=== PATIENT | male | born 1995 | race Caucasian/White ===

== ENCOUNTER 2017-10-15 19:36 | Inpatient (IN) | payer BC, OTHER ==
[~2017-10-15] VITALS: Ht 180.3 cm; Wt 61.2 kg
[2017-10-16] MEDS ORDERED: BUPRENORPHINE HCL 2 MG TAB.SUBL SL PRN (00:30)
[2017-10-16] MEDS ORDERED: HYDROXYZINE PAMOATE 25 MG CAPSULE PO PRN (00:30)
[2017-10-16] MEDS ORDERED: IBUPROFEN 400 MG TABLET PO PRN (00:30)
[2017-10-16] MEDS ORDERED: MAGNESIUM HYDROXIDE 30 ML LIQUID UDC PO PRN (00:30)
[2017-10-16] MEDS ORDERED: ONDANSETRON ODT 4 MG TAB.RAPDIS SL PRN (00:30)
[2017-10-16] MEDS ORDERED: MAG HYDROX/AL HYDROX/SIMETH 30 ML LIQUID UDC PO PRN (00:30)
[2017-10-16] MEDS ORDERED: MIRALAX 17 GM POWD.PACK PO PRN (00:30)
[2017-10-16] MEDS ORDERED: METHOCARBAMOL 750 MG TABLET PO PRN (00:30)
[2017-10-16] MEDS ORDERED: LOPERAMIDE HCL 2 MG CAPSULE PO PRN ×2 (00:30)
[2017-10-16] MEDS ORDERED: ONDANSETRON 4 MG/2 ML VIAL IM PRN (00:30)
[2017-10-16] MEDS ORDERED: DICYCLOMINE HCL 20 MG TABLET PO PRN (00:30)
[2017-10-16] MEDS ORDERED: CLONIDINE HCL 0.1 MG TABLET PO PRN (00:30)
[2017-10-16 03:53] LABS: *AMPHETAMINE, URINE POSITIVE (NEGATIVE); *BARBITURATE, URINE NEGATIVE (NEGATIVE); *CANNABINOID, URINE NEGATIVE (NEGATIVE); *COCCAINE, URINE NEGATIVE (NEGATIVE); *OPIATE, URINE POSITIVE (NEGATIVE); *PHENCYCLIDINE SCREEN,URINE NEGATIVE (NEGATIVE)
[2017-10-16 04:00] VITALS: BP 94/52
[2017-10-16 07:50] LABS: BASOPHILS % (AUTO) 0.3 % (0.0-2.0); EOSINOPHILS # (AUTO) 0.1 K/uL (0.0-0.7); EOSINOPHILS % (AUTO) 1.8 % (0.0-7.0); HEMATOCRIT 38.2 % (36.7-47.1); HEMOGLOBIN 13.1 g/dL (12.5-16.3); LYMPHOCYTES # (AUTO) 2.3 K/uL (20.0-40.0); LYMPHOCYTES % (AUTO) 48.2 % (20.5-51.5); MEAN CORPUSCULAR HGB CONC 34 g/dL (32.5-36.3); MEAN CORPUSCULAR VOLUME 87.6 fL (73.0-96.2); MONOCYTES # (AUTO) 0.4 K/uL (2.0-10.0); MONOCYTES % (AUTO) 9.4 % (0.0-11.0); NEUTROPHILS # (AUTO) 1.9 K/uL (1.8-8.9); NEUTROPHILS % (AUTO) 40.3 % (38.5-71.5); PLATELET COUNT (AUTO) 83 K/uL (152-348); RED BLOOD CELL COUNT(AUTO) 4.36 MIL/uL (4.06-5.63); WHITE BLOOD COUNT (AUTO) 4.7 K/uL (3.6-10.2)
[2017-10-16 08:00] VITALS: BP 104/58
[2017-10-16 08:05] LABS: ALANINE AMINOTRANSFERASE 176 U/L (16-63); ALKALINE PHOSPHATASE 79 U/L (50-136); AMYLASE 30 U/L (25-115); ASPARTATE AMINOTRANSFERASE 56 U/L (15-37); BILIRUBIN,TOTAL 0.4 mg/dL (0.2-1.0); CARBON DIOXIDE 26 mmol/L (21-32); CHLORIDE 105 mmol/L (98-107); CREATININE 0.7 mg/dL (0.6-1.3); GLUCOSE 97 mg/dL (74-106); LIPASE 77 U/L (73-393); POTASSIUM 3.6 mmol/L (3.5-5.1); TOTAL PROTEIN, SERUM 6.7 g/dL (6.4-8.2); UREA NITROGEN, BLOOD 10 mg/dL (7-18)
[2017-10-16 08:07] LABS: ETHANOL < 3 MG/DL (0-0)
[2017-10-16 08:17] LABS: THYROID STIMULATING HORMONE 1.479 mIU/mL (0.358-3.740)
[2017-10-16] MEDS ORDERED: IBUPROFEN 600 MG TABLET PO PRN (09:15)
[2017-10-16] MEDS: MULTIVITAMINS,THERAPEUTIC TABLET PO SCH (09:52)
[2017-10-16 10:36] LABS: LYMPHOCYTES % (MANUAL) 46 % (20-40); NEUTROPHILS % (MANUAL) 45 % (42-75)
[2017-10-16 10:37] LABS: BASOPHILS % (MANUAL) 1 % (0-2); EOSINOPHILS % (MANUAL) 1 % (0-8); MONOCYTES % (MANUAL) 7 % (2-10)
[2017-10-16] MEDS ORDERED: LORAZEPAM 1 MG TABLET PO PRN (11:30)
[2017-10-16 12:00] VITALS: BP 135/79
[2017-10-16] MEDS: BUPRENORPHINE HCL 2 MG TAB.SUBL SL SCH ×3 (12:53→21:56)
[2017-10-16 16:00] VITALS: BP 128/82
[2017-10-16 20:00] VITALS: BP 131/71
[2017-10-16] MEDS: GABAPENTIN 300 MG CAPSULE PO SCH (21:56)
[2017-10-17] VITALS: BP 140/73
[2017-10-17] MEDS: diphenhydrAMINE 50 MG CAPSULE PO PRN (00:25)
[2017-10-17 04:00] VITALS: BP 133/74
[2017-10-17 08:00] VITALS: BP 90/56
[2017-10-17 08:06] LABS: HEPATITIS B SURFACE AG Negative (Negative)
[2017-10-17] MEDS ORDERED: TUBERCULIN,PURIF.PROT.DERIV. 5 TU/0.1 ML TEST ID ONE (09:00)
[2017-10-17] MEDS ORDERED: BUPRENORPHINE HCL 2 MG TAB.SUBL SL SCH (09:00)
[2017-10-17] MEDS: MULTIVITAMINS,THERAPEUTIC TABLET PO SCH (09:53)
[2017-10-17] MEDS: GABAPENTIN 300 MG CAPSULE PO SCH ×3 (09:54→22:11)
[2017-10-17] MEDS: HYDROXYZINE PAMOATE 25 MG CAPSULE PO PRN (11:24)
[2017-10-17 12:13] VITALS: BP 140/74
[2017-10-17] MEDS: BUPRENORPHINE HCL 2 MG TAB.SUBL SL SCH ×2 (14:39→22:11)
[2017-10-17 16:00] VITALS: BP 92/56
[2017-10-17 20:02] VITALS: BP 124/74
[2017-10-17] MEDS: CLONIDINE HCL 0.1 MG TABLET PO SCH (22:11)
[2017-10-17] MEDS: ACETAMINOPHEN 325 MG TABLET PO PRN (23:18)
[2017-10-18 00:12] VITALS: BP 133/74
[2017-10-18 04:24] VITALS: BP 128/79
[2017-10-18 09:00] VITALS: BP 107/60
[2017-10-18] MEDS: BUPRENORPHINE HCL 2 MG TAB.SUBL SL SCH ×3 (09:47→22:20)
[2017-10-18] MEDS: ACETAMINOPHEN 325 MG TABLET PO PRN ×2 (09:48→18:32)
[2017-10-18] MEDS: CLONIDINE HCL 0.1 MG TABLET PO SCH ×2 (09:48→22:21)
[2017-10-18] MEDS: MULTIVITAMINS,THERAPEUTIC TABLET PO SCH (09:48)
[2017-10-18] MEDS: GABAPENTIN 300 MG CAPSULE PO SCH ×3 (09:48→22:20)
[2017-10-18] MEDS ORDERED: KETOROLAC TROMETHAMINE 30 MG INJ IM PRN (10:45)
[2017-10-18] MEDS ORDERED: BENZOCAINE ORAL CARE 12 ML BOTTLE MM PRN (10:45)
[2017-10-18] MEDS ORDERED: HYDR-3895 PO (12:35)
[2017-10-18] MEDS ORDERED: METH-406 PO (12:35)
[2017-10-18] MEDS ORDERED: DICY20TA28 PO (12:35)
[2017-10-18] MEDS ORDERED: DIPH50CA37 PO (12:35)
[2017-10-18] MEDS ORDERED: GABA-534 PO (12:35)
[2017-10-18] MEDS ORDERED: CLON0.1T14 PO (12:35)
[2017-10-18] MEDS ORDERED: IBUP-1955 PO (12:35)
[2017-10-18 12:42] VITALS: BP 129/68
[2017-10-18 16:41] VITALS: BP 123/76
[2017-10-18 20:00] VITALS: BP 125/73
[2017-10-18] MEDS: LACTOBACILLUS RHAMNOSUS GG 1 EACH CAPSULE PO SCH (22:20)
[2017-10-18] MEDS: diphenhydrAMINE 50 MG CAPSULE PO PRN (22:20)
[2017-10-18] MEDS: AMOXICILLIN-CLAVUL 875-125MG TABLET PO SCH (22:22)
[2017-10-19 08:00] VITALS: BP 119/72
[2017-10-19] MEDS ORDERED: BUPRENORPHINE HCL 2 MG TAB.SUBL SL SCH (09:00)
[2017-10-19] MEDS: MULTIVITAMINS,THERAPEUTIC TABLET PO SCH (09:19)
[2017-10-19] MEDS: GABAPENTIN 300 MG CAPSULE PO SCH ×3 (09:19→21:45)
[2017-10-19] MEDS: AMOXICILLIN-CLAVUL 875-125MG TABLET PO SCH ×2 (09:20→21:44)
[2017-10-19] MEDS: LACTOBACILLUS RHAMNOSUS GG 1 EACH CAPSULE PO SCH ×2 (09:20→21:44)
[2017-10-19] MEDS: CLONIDINE HCL 0.1 MG TABLET PO SCH ×2 (09:20→21:45)
[2017-10-19 12:00] VITALS: BP 102/60
[2017-10-19 16:00] VITALS: BP 128/66
[2017-10-19 20:00] VITALS: BP 125/70
[2017-10-19] MEDS: diphenhydrAMINE 50 MG CAPSULE PO PRN (21:44)
[2017-10-19] MEDS: HYDROXYZINE PAMOATE 25 MG CAPSULE PO PRN (21:44)
[2017-10-20 08:00] VITALS: BP 127/76
[2017-10-20] MEDS: AMOXICILLIN-CLAVUL 875-125MG TABLET PO SCH (08:01)
[2017-10-20] MEDS: GABAPENTIN 300 MG CAPSULE PO SCH (08:01)
[2017-10-20] MEDS: LACTOBACILLUS RHAMNOSUS GG 1 EACH CAPSULE PO SCH (08:11)
[2017-10-20] MEDS: MULTIVITAMINS,THERAPEUTIC TABLET PO SCH (08:11)
[2017-10-20] MEDS: CLONIDINE HCL 0.1 MG TABLET PO SCH (08:11)
== END 2017-10-20 09:32 | DRG 895 ==
LOC: SRC 10-16 00:03
PROVIDERS: ADMIT Internal Medicine; ATTEND Internal Medicine
PROC: HZ2ZZZZ Detoxification Services for Substance Abuse Treatment (ICD-10-PCS; principal; 2017-10-16)
PROC: HZ31ZZZ Individual Counseling for Substance Abuse Treatment, Behavioral (ICD-10-PCS; 2017-10-17)
PROC: HZ41ZZZ Group Counseling for Substance Abuse Treatment, Behavioral (ICD-10-PCS; 2017-10-18)
DX: F11.23 Opioid dependence with withdrawal (principal); F15.20 Other stimulant dependence, uncomplicated; G89.29 Other chronic pain; F41.9 Anxiety disorder, unspecified; F17.210 Nicotine dependence, cigarettes, uncomplicated; F32.9 Major depressive disorder, single episode, unspecified; B19.20 Unspecified viral hepatitis C without hepatic coma; K03.81 Cracked tooth; Z81.3 Family history of other psychoactive substance abuse and dependence; M51.9 Unspecified thoracic, thoracolumbar and lumbosacral intervertebral disc disorder
CPT/HCPCS: 36415; 70030-TC; 80307; 80324; 80361; 83690; 83735; 84443; 85025; 86592; 86705; 86803; 87340; 87806; A4663; A9150; G0480; Q0163